=== PATIENT | female | born 1975 | race Caucasian/White ===

== ENCOUNTER → 2017-02-04 13:11 | Outpatient (CLI) | payer BC ==
[2017-02-04 15:07] LABS: BASOPHILS 0.3 % (0-2); EOSINOPHILS 0.8 % (0-7); HEMATOCRIT 42.8 % (36.0-48.0); IMMATURE GRANULOCYTES 0.2 % (0-5); LYMPHOCYTES 23.6 % (15-50); MCH 28.1 pg (26.0-34.0); MCHC 32.7 g/dL (31.0-37.0); MCV 85.9 fL (80.0-100.0); MEAN PLATELET VOLUME 11.7 fL (7.4-10.4); MONOCYTES 4.3 % (2-11); NEUTROPHILS 70.8 % (40-80); PLATELET COUNT 218 10x3/uL (130-400); RBC 4.98 10x6/uL (4.00-5.40); RDW 14.5 % (11.5-14.5); WBC 11.6 10x3/uL (4.8-10.8)
[2017-02-04 15:53] LABS: T4 THYROXINE 9.5 ug/dL (4.7-13.3); THYROID STIMULATING HORMONE 1.96 uIU/mL (0.36-3.74)
[2017-02-05 07:28] LABS: PROGESTERONE 6.5 ng/mL (()); RAPID PLASMA REAGIN Non Reactive (Non Reactive)
[2017-02-05 14:25] LABS: RUBELLA IGG 1.58 index (Immune >0.99)
== END | disposition home or self-care (01) ==
LOC: D.LAB 13:11
PROVIDERS: Specialist
DX: Z33.1 Pregnant state, incidental (principal)

== ENCOUNTER → 2017-02-06 11:06 | Outpatient (CLI) | payer BC | END | disposition home or self-care (01) | LOC: D.US 11:06 | DX: O09.91 Supervision of high risk pregnancy, unspecified, first trimester (principal) ==